=== PATIENT | female | born 1950 | race Caucasian/White ===

== ENCOUNTER 2017-12-05 07:19 | Day surgery (SDC) | payer MEDICARE ==
[2017-12-05] MEDS ORDERED: PROPOFOL 20 ML (09:43)
== END 2017-12-05 15:46 | disposition home or self-care (01) ==
LOC: GIL 07:19
DX: Z12.11 Encounter for screening for malignant neoplasm of colon (principal); K64.8 Other hemorrhoids; I10 Essential (primary) hypertension
CPT/HCPCS: 45380; 88305